=== PATIENT | male | born 1965 | race Caucasian/White ===

== ENCOUNTER → 2024-02-21 06:35 | Day surgery (SDC) | payer OTHER, SELFPAY | LOC: GI 06:35 | PROVIDERS: ATTENDING PHYSICIAN Internal Medicine | DX: Z12.11 Encounter for screening for malignant neoplasm of colon (principal); R19.5 Other fecal abnormalities; K64.8 Other hemorrhoids; Z86.010 Personal history of colon polyps | CPT/HCPCS: G0105 ==

== ENCOUNTER 2025-05-09 21:34 | Emergency (ER) | payer OTHER, SELFPAY ==
[2025-05-09 21:40] VITALS: BP 173/109
[2025-05-09 21:53] VITALS: BP 144/90
[2025-05-09 22:00] VITALS: BP 135/94
--- NOTE | 2025-05-09 22:05 | ED.GENMED ---
History of Present Illness
General
Chief Complaint: Chest Pain
Source: patient and family
Exam Limitations: none
Time Seen by Provider: 05/09/25 21:50
Nursing documentation reviewed up to this point in time: agreed with
History of Present Illness
History of Present Illness:
Note:
CHIEF COMPLAINT(S)
Chest tightness and difficulty breathing.
HISTORY OF PRESENT ILLNESS
The patient is a 59-year-old male who presented to the emergency department with complaints of chest tightness and difficulty breathing. The symptoms began upon returning home from work, where he had been engaged in physical activity such as mowing
and weed trimming. He denies experiencing pain while at work. The patient describes the chest tightness as persistent since onset. He reports taking aspirin earlier today.
PAST MEDICAL AND SURIGICAL HISTORY
The patient recalls seeing a special events assistant previously for a pre-surgical evaluation, though specific details were not provided in this encounter.
SOCIAL DETERMINANTS AFFECTING HEALTH
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
REVIEW OF SYSTEMS
- Respiratory: Difficulty breathing, exacerbated by deep inspiration.
- Cardiovascular: Chest tightness persistent since onset.
PHYSICAL EXAM
General: Alert, no acute distress.
Skin: Warm, dry.
Head: Normocephalic, atraumatic.
Neck: Supple, trachea midline.
Eye Ears, Nose, Mouth, and Throat: Oral mucosa moist.
Cardiovascular: Normal peripheral perfusion, No edema.
Respiratory: Respirations are non-labored.
Gastrointestinal: Abdomen nondistended
Back: Normal range of motion, Normal alignment.
Musculoskeletal: Normal ROM, normal strength.
Neurological: Alert and oriented to person, place, time, and situation, No focal neurological deficit observed.
Psychiatric: Cooperative, appropriate mood & affect.
PROBLEM LIST
- Acute: Chest tightness, difficulty breathing.
PLAN
1. Obtain blood tests to screen for blood clots.
2. Perform chest X-ray to investigate the cause of chest tightness and difficulty breathing.
3. Administer aspirin as a precautionary measure. The patient confirmed they have already taken aspirin today.
DIFFERENTIAL DIAGNOSIS
The Differential Diagnosis includes, in no particular order and is not limited to:
1. Myocardial ischemia
2. Pulmonary embolism
3. Gastroesophageal reflux disease
4. Costochondritis
5. Pneumothorax
6. Pneumonia
7. Musculoskeletal strain
8. Aortic dissection
9. Pericarditis
10. Anxiety or panic disorder
EKG
My independent EKG interpretation is:
- Time of EKG: Not specified
- Rhythm: Sinus rhythm
- Heart Rate: Not specified
- RI Interval: Normal
- QRS Duration: Normal
- QT Interval: Normal
- [place]: Normal
- Abnormalities: No signs of ischemia
- Additional Comments: Patient stable for discharge, chest pain-free
Disposition:
SUMMARY OF ENCOUNTER
The patient is a 59-year-old male who presented to the emergency department with complaints of chest tightness and difficulty breathing which began after returning home from work involving physical activities like mowing and weed trimming. In the
ED, management included obtaining blood tests including D-dimer and troponin, both of which were negative, and performing an EKG that showed no signs of ischemia. The patients lungs were clear on examination, he was afebrile, and his vital signs
were stable. After evaluation and treatment, the patient was deemed stable for discharge.
DISPOSITION
Discharge.
ASSESSMENT
Acute chest tightness and difficulty breathing, potentially due to exertion from work activities given the negative lab tests and stable EKG.
PLAN
1. Discharge the patient home with follow-up instructions.
2. Advise the patient to monitor symptoms and return if they worsen.
3. Recommend follow-up with a primary care provider or special events assistant for further evaluation.
INDEPENDENT REVIEW OF LABS AND INTERPRETATION OF TESTS
- My independent review of D-dimer is negative.
- My independent review of troponin is negative.
- My independent EKG interpretation is sinus rhythm, no signs of ischemia.
PATIENT EDUCATION AND COUNSELING
The patient was advised about the potential causes of chest tightness and the importance of monitoring symptoms. He was informed that test results were reassuring, but follow-up with a primary care provider is important to rule out other conditions.
FOLLOW-UP INSTRUCTIONS
Follow up with a primary care provider or a special events assistant as advised. Monitor symptoms and return to the emergency department if they worsen.
MEDICATION RECONCILIATION
1. Aspirin was administered by the patient before arrival.
MEDICAL DECISION MAKING
- Complexity of Data Reviewed: Differential Diagnosis includes myocardial ischemia, pulmonary embolism, gastroesophageal reflux disease, costochondritis, pneumothorax, pneumonia, musculoskeletal strain, aortic dissection, pericarditis, anxiety or
panic disorder.
- Data:
- Category 1: My independent interpretation of labs included a negative D-dimer and negative troponin. My independent EKG interpretation showed no signs of ischemia.
- Risk:
Consideration of Admission/Observation: Escalation of care including admission/observation was considered given the complexity and risk of the patients presenting complaint. However, ultimately, the patient is safe for outpatient management with
close follow-up. Reasoning: Work-up reassuring, does not reveal any acute life/organ-threatening processes, patients symptoms well controlled upon reevaluation, reexamination is reassuring, vitals are stable, patient agreeable with discharge,
reliable for follow-up.
DIAGNOSIS
1. Chest pain, unspecified (ICD-10: R07.9)
2. Dyspnea, unspecified (ICD-10: R06.00)
Past History
Past History
ED Past Medical History: HTN, Psychiatric (Depression, intentional overdose July 2019, ADHD) and Other (Substance use disorder, maintained on Suboxone)
ED Past Surgical History: Orthopedic (Left femur fracture with repair) and Tonsilectomy
Social History
Tobacco: Non-smoker
Alcohol: Occasional
Drug: Former user
Personal:
Living: with family
Employment: Not employed
Family History
Family History: Hypertension; Negative Diabetes
Phy Exam
Physical Exam
Physical Exam:
.
Scores
Heart Score for Chest Pain Patients
STEMI patient?: No
History: Slightly or Non-Suspicious
ECG: Nonspecific Repolarization
Age: >45 - <65 years
Risk Factors: 1 or 2 Risk Factors
Troponin: </= Normal Limit
Heart Score for Chest Pain Patients: 3
Heart Score Risk: 2.5% MACE over next 6 weeks
Course
Orders/Labs/Results
Orders:
Orders
05/09/25 21:37
Electrocardiogram (*1) Urgent
Reason for Study: Chest Pain
EKG- Treatment ONCE
05/09/25 21:52
IV Insert/Care/Rem.- Treatment PRN
Pulse Ox/cont/shift [RESP] Stat
Quantity: 1
05/09/25 21:53
Cardiac Monitoring- Treatment ONCE
05/09/25 22:15
Complete Blood Count/With Diff Urgent
Comprehensive Metabolic Panel Urgent
D-Dimer Urgent
Troponin I Urgent
05/10/25 01:16
Troponin I Urgent
05/10/25 02:06
Electrocardiogram (*1) Urgent
Reason for Study: Chest Pain
EKG- Treatment ONCE
05/11/25 01:15
Troponin I Urgent
Abnormal Lab Results
05/09/25
22:15
RBC 4.34 L 10^6/uL
(4.70-6.10)
Hgb 9.4 L g/dL
(13.0-18.0)
Hct 30.6 L %
(39.0-52.0)
MCV 70.5 L fL
(80.0-94.0)
MCH 21.7 L pg
(27.0-31.0)
MCHC 30.7 L g/dL
(33.0-37.0)
RDW 15.4 H %
(11.5-14.5)
MPV 11.0 H fL
(7.4-10.4)
Absolute Monos (auto) 0.8 H 10^3/uL
(0.1-0.6)
Monocytes % 9.9 H %
(1.7-9.3)
Glucose 104 H mg/dl
(70-99)
05/09/25 22:15
05/09/25 22:15
Vital Signs
Initial and Last Documented VS:
Initial Vital Signs
Temp Pulse Resp BP Pulse Ox
98.0 F 97 20 173/109 99
05/09/25 21:40 05/09/25 21:40 05/09/25 21:40 05/09/25 21:40 05/09/25 21:40
Last Documented Vital Signs
Temp Pulse Resp BP Pulse Ox
98.0 F 79 11 135/94 100
05/09/25 21:40 05/09/25 22:15 05/09/25 22:15 05/09/25 22:00 05/09/25 22:26
*Pulse Oximetry
SaO2: 99
Oxygen Mode of Delivery: Room air
Patient hypoxic: no
*Critical Care Note
Total Time (30-74mins, 75-104mins- exclusive of procedures): Not Applicable
ED Attending Note
-
Portions of this chart may have been created with voice recognition software.� Occasional wrong word or��sound alike� substitutions may have occurred due to the inherent limitations of voice recognition software.
Discharge Plan
Departure
Patient Disposition: Home (Routine Discharge)
Date of Disposition: 05/10/25
Time of Disposition: 02:33
Patient with high blood pressure during this ER visit?: Yes
Condition: Good
Discharge Problem:
Chest pain
Instructions: Chest Pain DCA Follow Up, BLOOD PRESSURE
Prescriptions:
No Action
simvastatin 20 MG tablet
20 mg PO HS
mirtazapine [Remeron] 45 MG tablet
45 mg PO DAILY
allopurinol 300 MG tablet
300 mg PO DAILY
metoprolol tartrate 25 MG tablet
25 mg PO HS
sertraline 100 MG tablet
200 mg PO DAILY
zolpidem 10 MG tablet
10 mg PO HSPRN PRN (Reason: sleep)
buprenorphine-naloxone 1 TAB tablet, sublingual
2 tab sublingual DAILY
diclofenac sodium 75 MG tablet,delayed release (DR/EC)
75 mg PO BID PRN (Reason: pain, take with food) Qty: 24 0RF
gabapentin [Gabarone] 300 MG tablet
300 mg PO TID Qty: 30 0RF
Referrals:
Tessy Art MD [Family Provider]
Activity Restrictions/Additional Instructions:
Return for any concerns.
Interventions
Interventions:
*General Assessment Last Done: 05/09/25 21:40
ED- Cardiac Assessment Last Done: 05/09/25 22:24
Discharge Date and Time
Print Language: ITALIAN
[2025-05-09 22:38] LABS: Hematocrit 30.6 % (39.0-52.0); Hemoglobin 9.4 g/dL (13.0-18.0); Mean Corp Hgb Conc. 30.7 g/dL (33.0-37.0); Mean Corpuscular Volume 70.5 fL (80.0-94.0); Nucleated Red Blood Cells % 0 % (-); Platelet Count 236 10^3/uL (130-400); Red Cell Dist. Width 15.4 % (11.5-14.5)
[2025-05-09 22:54] LABS: D-Dimer 0.45 ug/mlFEU (0.00-0.50)
[2025-05-09 22:58] LABS: ALT (SGPT) 24 U/L (0-50); AST (SGOT) 28 U/L (17-59); Albumin 4.2 g/dl (3.5-5.0); Alkaline Phosphatase 47 U/L (38-126); Blood Urea Nitrogen 14 mg/dl (9-20); Calcium 8.8 mg/dl (8.4-10.2); Carbon Dioxide 27 mmol/L (22-30); Chloride 106 mmol/L (98-107); Glucose 104 mg/dl (70-99); Potassium 3.5 mmol/L (3.5-5.1); Sodium 137 mmol/L (135-145); Total Protein 6.8 g/dl (6.3-8.2); eGFR > 60.00
[2025-05-09 23:00] VITALS: BP 128/78
[2025-05-09 23:07] LABS: Troponin I 0.017 ng/ml
[2025-05-10] VITALS: BP 155/95
[2025-05-10 01:00] VITALS: BP 133/76
[2025-05-10 01:59] LABS: Troponin I 0.021 ng/ml
[2025-05-10 02:00] VITALS: BP 151/81
== END 2025-05-10 03:33 | disposition home or self-care (01) ==
LOC: EMR 21:34
PROVIDERS: EMERGENCY PHYSICIAN Emergency Medicine; FAMILY PHYSICIAN Internal Medicine
DX: R07.9 Chest pain, unspecified (principal); I10 Essential (primary) hypertension; F32.A Depression, unspecified; F90.9 Attention-deficit hyperactivity disorder, unspecified type; Z82.49 Family history of ischemic heart disease and other diseases of the circulatory system
CPT/HCPCS: 99284; 80053; 84484; 85025; 85379; 93005